=== PATIENT | female | born 1955 | race Caucasian/White ===

== ENCOUNTER 2017-04-02 11:56 | Inpatient (IN) | payer BC ==
[2017-04-02] MEDS ORDERED: IPRATROPIUM-ALBUTEROL 3 ML NEB INHALATION PRN (12:45)
[2017-04-02] MEDS ORDERED: HYDROcodone/APAP 5-325MG 1 EACH TAB PO PRN (13:46)
[2017-04-02] MEDS ORDERED: LIDOCAINE 4% CREAM 5 GM TUBE TOPICAL PRN (13:47)
[2017-04-02] MEDS ORDERED: EPINEPHrine (Auto Inject) 0.3 MG/0.3 ML SYRINGE IM PRN (13:47)
[2017-04-02] MEDS ORDERED: guaiFENesin-Coden 100-10MG/5ML 10 ML CUP PO PRN (13:47)
[2017-04-02] MEDS ORDERED: LIDOCAINE 5% PATCH TOPICAL PRN ×2 (13:47→18:56)
[2017-04-02] MEDS: LEVOFLOXACIN 750MG-D5W PMX 750 MG in DEXTROSE/WATER 1 150ML.BAG IVPB SCH (14:06)
[2017-04-02] MEDS: methylPREDNISolone SOD SUCCI 125 MG/2 ML VIAL IV SCH ×2 (14:07→20:26)
[2017-04-02] MEDS: AZITHROMYCIN 500 MG TAB PO SCH (14:07)
[2017-04-02 14:41] LABS: Basophils # (A) 0.1 k/uL (0-0.2); Basophils % (A) 1 %; CH 29.7; CHCM 32.2; Eosinophils # (A) 0.1 k/uL (0-0.7); Eosinophils % (A) 1 %; HCT 45.3 % (34.0-46.0); HDW 2.43; HGB 14.5 gm/dL (11.4-16.0); Luc % (Auto) 2; Lymphocytes % (A) 23 %; MCH 29.6 pg (25.0-35.0); MCHC 31.9 g/dL (31.0-37.0); MCV 92.8 fL (80.0-100.0); Monocytes # (A) 0.5 k/uL (0-1.0); Monocytes % (A) 6 %; Neutrophils # (A) 5.9 k/uL (1.3-7.7); Neutrophils % (A) 68 %; RBC 4.88 m/uL (3.80-5.40); RDW 12.6 % (11.5-15.5); WBC 8.8 k/uL (3.8-10.6); WBC (Perox) 8.74
[2017-04-02 14:55] LABS: ALT 29 U/L (9-52); AST 18 U/L (14-36); Alkaline Phosphatase 67 U/L (38-126); Anion Gap 14 mmol/L; Blood Urea Nitrogen 14 mg/dL (7-17); Calcium 10.2 mg/dL (8.4-10.2); Carbon Dioxide 24 mmol/L (22-30); Chloride 104 mmol/L (98-107); Glucose 83 mg/dL (74-99); Non-African American GFR(MDRD) >60 (>60 ml/min/1.73 sqM); Sodium 142 mmol/L (137-145); Total Bilirubin 0.5 mg/dL (0.2-1.3); Total Protein 7.2 g/dL (6.3-8.2)
[2017-04-02] MEDS: IPRATROPIUM-ALBUTEROL 3 ML NEB INHALATION SCH ×2 (15:41→20:15)
[2017-04-02] MEDS: guaiFENesin SYRUP 100MG/5ML 200 MG/10 ML CUP PO PRN ×2 (17:27→23:42)
[2017-04-02] MEDS ORDERED: MELOXICAM 7.5 MG TAB PO PRN (18:57)
[2017-04-02] MEDS: guaiFENesin-DM 600/30MG 1 EACH TAB.ER.12H PO SCH (19:59)
[2017-04-02] MEDS: AMITRIPTYLINE HCL 25 MG TAB PO SCH (20:01)
[2017-04-02] MEDS: SYMBICORT 160-4.5 MCG INHALER INHALATION SCH (20:15)
[2017-04-02] MEDS ORDERED: ZOLPIDEM 5 MG TAB PO PRN (21:00)
[2017-04-02] MEDS ORDERED: ATORVASTATIN 20 MG TAB PO SCH (21:00)
[2017-04-02] MEDS ORDERED: DOXYCYCLINE HYCLATE 100 MG PO SCH (21:00)
[2017-04-02] MEDS ORDERED: LUBIPROSTONE 8 MCG PO SCH (21:00)
[2017-04-02] MEDS ORDERED: MONTELUKAST 10 MG TAB PO SCH (21:00)
[2017-04-02] MEDS: HYDROcodone/APAP 10-325MG 1 EACH TAB PO PRN (21:34)
[2017-04-03] MEDS: methylPREDNISolone SOD SUCCI 125 MG/2 ML VIAL IV SCH ×4 (00:29→16:43)
[2017-04-03] MEDS: HYDROcodone/APAP 10-325MG 1 EACH TAB PO PRN ×2 (07:19→16:56)
[2017-04-03] MEDS ORDERED: PANTOPRAZOLE 40 MG TABLET PO SCH (07:30)
[2017-04-03] MEDS: IPRATROPIUM-ALBUTEROL 3 ML NEB INHALATION SCH ×3 (07:59→15:49)
[2017-04-03] MEDS: SYMBICORT 160-4.5 MCG INHALER INHALATION SCH ×2 (07:59→08:24)
--- NOTE | 2017-04-03 08:22 | HP ---
DATE OF ADMISSION: 04/02/2017 PRESENTING COMPLAINT: Short of breath, cough. HISTORY OF PRESENTING COMPLAINT: This is a 61-year-old patient of Dr. Monzon. Patient has got a long-standing history of asthma. The patient presented from the office seen by Dr. Barlow, with worsening shortness of breath, cough, not able to expectorate, fever, short of breath, wheezing. Patient did plan to do a bronchoscopy. ( ), set up, weak and tired. The patient's chronic stable medical conditions include urinary incontinence, increased cholesterol, GERD, patient has chronic low back pain and arthritic pain in the joints. REVIEW OF SYSTEMS: CONSTITUTIONAL: Tired. HEENT: As above. RESPIRATORY: As above. CARDIOVASCULAR: None. GASTROINTESTINAL: Heartburn. GENITOURINARY: Urinary incontinence. Dermatological: None. HEMATOLOGICAL: None. LYMPHATICS: None. PSYCHIATRY: None. NEUROLOGICAL: None. PAST MEDICAL HISTORY: Chronic urinary incontinence, hypercholesterolemia, GERD, ( ) asthma, lower back pain with neuropathy and arthritis in many joints. PAST SURGICAL HISTORY: Cholecystectomy, hysterectomy, bronchoscopy, recent ( ) surgery. SOCIAL HISTORY: . Does not smoke or drink alcohol. FAMILY HISTORY: Coronary artery disease and hyperlipidemia. Home medications: 1. Zoloft 1 mg a day. 2. Mobic 50 mg p.o. daily p.r.n. 3. [place] 10 1 tablets q.6 p.r.n. 4. Tramadol 0.25 every 7 days. 5. Lidoderm 5% patch daily p.r.n. 6. Xylocaine ointment topical daily p.r.n. 7. Vitamin D3 1000 units p.o. daily. 8. Probiotic 1 capsule p.o. daily. 9. EpiPen 0.3 IM once p.r.n. 10. Lipitor 20 mg p.o. q.h.s. 11. Dulera 2 puffs b.i.d. 12. Myrbetriq 25 mg p.o. daily. 13. Amitiza 8 mcg p.o. b.i.d. 14. Elavil 75 mg p.o. b.i.d. ALLERGIES TO IV CONTRAST DYE, PENICILLIN, SULFA. On examination, temperature 98.7, pulse 100, respiration 20, blood pressure 120/73, pulse ox 93% on room air. GENERAL APPEARANCE: Average build, sitting up, bouts of coughing. EYES: Pupils equal. Conjunctivae normal. HEENT: External appearance of nose and ears normal. Oral cavity normal. NECK: JVD not raised. Mass not palpable. RESPIRATORY: Effort increased. LUNGS: Decreased breath sounds and wheezing. Expiratory wheeze, coarse crackles. CARDIOVASCULAR: First and second sounds normal. No edema. ABDOMEN: Soft, nontender. Liver and spleen not palpable. LYMPHATIC: No lymph nodes palpable in neck or axillae. PSYCHIATRY: Alert and oriented x3. Mood and affect normal. NEUROLOGICAL: Pupils equal. Cranial nerves grossly intact. Power and sensation grossly intact. INVESTIGATIONS: White count 8.8, hemoglobin 8.5, potassium 4.0, BUN and creatinine normal. ASSESSMENT: 1. Left lower lobe pneumonia community-acquired, suspect gram-negative organism. 2. Persistent ( ) asthma with acute exacerbation from above. 3. Chronic urinary stress incontinence. 4. Hypercholesterolemia. 5. Gastroesophageal reflux disease. 6. Chronic low back pain with neuropathy. 7. Primary osteoarthritis multiple joints bilateral joints. PLAN: Patient was put on nebulized bronchodilators, antibiotics in form of Levaquin and IV Solu-Medrol. Home medications resumed. Care was discussed with the patient. Patient will be getting bronchoscopy tomorrow.
[2017-04-03] MEDS ORDERED: SERTRALINE 100 MG TAB PO SCH (09:00)
[2017-04-03] MEDS ORDERED: LACTOBACILLUS ACIDOPH & BULGAR 1 EACH PACKET PO SCH (09:00)
[2017-04-03] MEDS ORDERED: AMITRIPTYLINE HCL 25 MG TAB PO SCH (09:00)
[2017-04-03] MEDS ORDERED: ENOXAPARIN 40 MG/0.4 ML SYRINGE SQ SCH (09:00)
[2017-04-03] MEDS ORDERED: NON-FORMULARY DRUG (Mirabegron [Myrbetriq] 25 MG) PO SCH (09:00)
[2017-04-03] MEDS ORDERED: OXYBUTYNIN XL 5 MG TAB.ER.24 PO SCH (09:00)
[2017-04-03] MEDS ORDERED: CHOLECALCIFEROL 1,000 UNIT TAB PO SCH (12:00)
[2017-04-03] MEDS ORDERED: ERGOCALCIFEROL 50,000 UNIT CAP PO SCH (12:00)
[2017-04-03] MEDS ORDERED: PROPOFOL 10 MG/ML 20 ML VIAL IV ONE (12:44)
[2017-04-03] MEDS ORDERED: LACTATED RINGERS 1,000 ML IV ONE (12:45)
[2017-04-03] MEDS ORDERED: LIDOCAINE 2% (PF) 20 MG/ML 10ML INHALATION ONE (12:45)
--- NOTE | 2017-04-03 12:50 | P.CNPUL ---
History of Present Illness Consult date: 04/03/17 Reason for consult: dyspnea, cough History of present illness: 61-year-old female patient who is known to me. The patient's was sent over from our office yesterday because of increased difficulty in breathing. The patient increased cough and congestion and wheezing it's been going on for more than 3 weeks. Apparently the patient was initially treated by the [facility] locally and she was given a course of Cefnadir and a prednisone burst taper and she was given promethazine with codeine for cough. Unfortunately her condition did not improve. Yesterday she was seen by Dr. Ndiaye and the patient was diagnosed having a left lower lobe pneumonia and for that reason the patient was hospitalized and a bronchoscopy was also indicated knowing that the patient had a similar presentation approximately 8 months ago and she had significant difficulties and cough and altered the rest or secretions and she required a bronchoscopy for therapeutic airway suctioning and lavage. Note that the penis bronchoscopy was negative. I have diagnosed this patient with bronchial asthma. I treated her back in August 2016 for a similar presentation. Following her discharge was placed on Dulera as maintenance. Apparently she has been compliant to her treatment. She has no pets at home. She does not have any exposure to cigarette smoke. No nasal polyposis. No aspirin sensitivities. No skin rashes. She did recover well from her original asthma exacerbation occurred in August 2016. Note that during her earlier bronchoscopy the patient showed purulent respiratory secretions from the left lower lobe and the lingula. She has depression. She has hyperlipidemia as comorbid conditions. She has skeletal chest wall pain due to ongoing cough. No pleurisy. No hemoptysis. No fever or chills. Currently she is on a combination of Rocephin and Zithromax. No involvement of ALLERGIES. Review of Systems All systems: negative Constitutional: Denies chills, Denies fever Eyes: denies blurred vision, denies pain Ears, nose, mouth and throat: Denies headache, Denies sore throat Cardiovascular: Denies chest pain, Denies shortness of breath Respiratory: Reports cough, Reports cough with sputum, Reports dyspnea, Reports wheezing Gastrointestinal: Denies abdominal pain, Denies diarrhea, Denies nausea, Denies vomiting Genitourinary: Denies dysuria, Denies hematuria Musculoskeletal: Denies myalgias Integumentary: Denies pruritus, Denies rash Neurological: Denies numbness, Denies weakness Psychiatric: Denies anxiety, Denies depression Endocrine: Denies fatigue, Denies weight change Past Medical History Past Medical History: Asthma, GERD/Reflux, Hyperlipidemia, Pneumonia Additional Past Medical History / Comment(s): chronic low back pain, chronic bronchial asthma, hyperlipidemia, depression, osteoarthritis, overactive bladder History of Any Multi-Drug Resistant Organisms: None Reported Past Surgical History: Cholecystectomy, Hysterectomy, Orthopedic Surgery Additional Past Surgical History / Comment(s): 09/07/16 bronchoscopy with BAL, colonoscopy, recent L knee arthroscopic surgery. Past Anesthesia/Blood Transfusion Reactions: Postoperative Nausea & Vomiting ( PONV) Additional Past Anesthesia/Blood Transfusion Reaction / Comment(s): pt stated she has not had a blood tranfusion. Past Psychological History: No Psychological Hx Reported Additional Psychological History / Comment(s): Pt resides with her spouse. She uses a cane at times if her balance is off. She drives. Smoking Status: Never smoker Past Alcohol Use History: None Reported Past Drug Use History: None Reported - Past Family History Father Family Medical History: Coronary Artery Disease (CAD), Hyperlipidemia Additional Family Medical History / Comment(s): Father is . Mother Family Medical History: Rheumatoid Arthritis (RA) Additional Family Medical History / Comment(s): Mother is 90yrs old. Medications and Allergies Home Medications Medication Instructions Recorded Confirmed Type Atorvastatin [Lipitor] 20 mg PO HS 09/04/16 04/02/17 History EPINEPHrine [Epipen 2-Casey] 0.3 mg IM ONCE PRN 09/04/16 04/02/17 History Lidocaine 5% Oint [Xylocaine 5% 1 applic TOPICAL DAILY PRN 09/04/16 04/02/17 History Oint] Lidocaine [Lidoderm 5% Patch] 2 patch TRANSDERM DAILY PRN 09/04/16 04/02/17 History Lubiprostone [Amitiza] 8 mcg PO BID 09/04/16 04/02/17 History Mirabegron [Myrbetriq] 25 mg PO DAILY 09/04/16 04/02/17 History Mometasone/Formoterol [Dulera 200 2 puff INHALATION RT-BID 09/04/16 04/02/17 History Mcg/5 Mcg Inhaler] Cholecalciferol [Vitamin D3] 1,000 unit PO DAILY 04/02/17 04/02/17 History Estradiol [Climara 0.025 MG] 1 patch TRANSDERM Q7DAYS 04/02/17 04/02/17 History HYDROcodone/APAP 10-325MG [[place] 1 tab PO Q6H PRN 04/02/17 04/02/17 History 10-325] L.acidoph,Paracasei, B.lactis 1 cap PO DAILY 04/02/17 04/02/17 History [Probiotic] Meloxicam [Mobic] 15 mg PO DAILY PRN 04/02/17 04/02/17 History Sertraline [Zoloft] 200 mg PO DAILY 04/02/17 04/02/17 History Allergies Allergy/AdvReac Type Severity Reaction Status Date / Time Iodinated Contrast Media - Allergy Anaphylaxis Verified 04/02/17 14:18 Oral and [Iodinated Contrast Media - IV Dye] Penicillins Allergy Swelling Verified 04/02/17 14:18 Sulfa (Sulfonamide Allergy Unknown Verified 04/02/17 14:18 Antibiotics) Childhood Physical Exam Vitals: Vital Signs Temp Pulse Pulse Resp BP Pulse Ox 04/03/17 08:01 86 04/03/17 08:00 103 H 16 04/03/17 07:00 97.4 F L 103 H 16 136/61 97 04/03/17 00:00 18 04/02/17 23:24 97.7 F 104 H 18 142/64 93 L 04/02/17 20:25 88 04/02/17 20:16 80 04/02/17 16:00 18 04/02/17 15:51 84 04/02/17 15:41 84 04/02/17 15:00 98.7 F 100 20 121/73 93 L Intake and Output 04/02/17 04/03/17 04/03/17 22:59 06:59 14:59 Other: Voiding Method Toilet # Voids 1 1 1 Weight 68.8 kg 68.8 kg Patient Weight 04/04/17 06:59 Weight 68.8 kg The patient appeared well nourished and normally developed. Vital signs as documented. Head exam is unremarkable. No scleral icterus or corneal arcus noted. Neck is without jugular venous distension, thyromegaly, or carotid bruits. Carotid upstrokes are brisk bilaterally. Lungs are diminished breath sound bilaterally along with diffuse expiratory wheezes throughout the lung sandoval and scattered rhonchi.. Cardiac exam reveals the PMI to be normally sized and situated. Rhythm is regular. First and second heart sounds normal. No murmurs, rubs or gallops. Abdominal exam reveals normal bowel sounds, no masses , no organomegaly and no aortic enlargement. Extremities are nonedematous and both femoral and pedal pulses are normal. Results - Laboratory Findings CBC and BMP: 04/02/17 13:46 04/02/17 13:46 - Diagnostic Findings Chest x-ray: image reviewed Assessment and Plan Plan: Assessment 1 left lower lobe pneumonia, was treated with Cefdanir and a prednisone burst taper on an outpatient basis. The patient is persistent infiltration of the left lung base. 2 chronic bronchial asthma 3 asthma exacerbation secondary to left lower lobe pneumonia 4 increased dyspnea cough and wheeze secondary to above 5 hyperlipidemia 6 depression 7 chronic back pain Plan Continue Levaquin and discontinue the Zithromax. Check a Legionella urine antigen. Continue bronchodilators and the patient is sitting DuoNeb neb last treatment [id number]. Continue systemic steroids. We'll proceed with bronchoscopy and therapeutic it was suctioning bronchial lavage. Further recommendations are to follow. Consider discharge following the bronchoscopy that was treated on outpatient basis with oral antibiotics and a prednisone burst taper. I'll make it final decision once the patient completes her bronchoscope. Case was discussed with the hospitalist.
--- NOTE | 2017-04-03 13:06 | P.PCN ---
Date of Procedure: 04/03/17 Preoperative Diagnosis: Left lower lobe pneumonia Postoperative Diagnosis: 1 left lower lobe pneumonia 2 tracheal bronchomalacia Procedure(s) Performed: Bronchoscopy, bronchioloalveolar lavage of the left lower lobe Implants: Anesthesia: MAC Surgeon: Virginia Monzon Estimated Blood Loss (ml): 0 Pathology: other Condition: stable Disposition: same day Indications for Procedure: LLL pneumonia , persistent Operative Findings: This procedure was done under conscious sedation with anesthetic agents being administered by anesthesia the bedside. The patient was induced by Diprivan. After achieving adequate sedation, the flexible bronchoscope was inserted to the right nostril was advanced upper airway. Examination of the posterior oropharynx, larynx, epiglottis, vallecula, arytenoids and 12. Records were all within normal limits. A total of 2 mL of 1% lidocaine was applied to the vocal cords and following that the bronchoscope was advanced into the upper the trachea. Examination of the tracheal bronchial tree was done. There was a [id number] uptake of bronchomalacia with evidence of dynamic obstruction with axillary maneuvers and coughing. The membranous trachea was quite mobile and dynamic and moving anteriorly causing some degree of airway obstruction with cough and. There was significant amount of purulent respiratory secretions. Within the patient's trachea and at the bronchoscope was advanced, it was obvious that the purulent secretions were emanating and/or originating from the left lower lobe. At this point that particular was suctioning was done and the rest or secretions were suctioned out without any major difficulties. The airway inspection was completed. The trachea was widely apron them within normal limits with evidence of trachea malacia. The right mainstem bronchus, right upper lobe bronchus, bronchus intermedius, right middle lobe bronchus and right lower lobe bronchus were widely patent within normal limits. Left mainstem bronchus was full of purulent material that were suctioned out. Similarly, purulent material wasn't defined in the left lower lobe and I think this was the origin of the pneumonia and rest or secretions. It was suctioning was done. Bronchial lavage of the left lower lobe was downward total of 60 and mother fluid was infused and 20 MO's of purulent material was suctioned back. The airway inspection on the left side showed inflamed and thickened and erythematous left lower lobe bronchus. Left upper lobe bronchus was also similarly affected although to a lesser extent. The airways were patent. No endobronchial tumors or lesions. Addendum of the procedure therapeutic it was suctioning was done and the bronchus was removed and the sample will be sent for cultures. No bedside Complications or bleeding. Description of Procedure:
--- NOTE | 2017-04-03 13:59 | XR ---
EXAMINATION TYPE: XR chest 2V DATE OF EXAM: 04/03/2017 HISTORY: chest for pneumonia. REFERENCE: Previous study dated 04/02/2017. FINDINGS: There is a right middle lobe infiltrate. This has improved slightly from yesterday study. T he right lung is clear. I cannot exclude a small left effusion. Heart size upper limits of normal. IMPRESSION: SLIGHTLY IMPROVED AERATION, LEFT LUNG BASE.
[2017-04-03] MEDS: guaiFENesin-DM 600/30MG 1 EACH TAB.ER.12H PO SCH (15:28)
[2017-04-03] MEDS: AZITHROMYCIN 500 MG TAB PO SCH (15:29)
[2017-04-03 15:45] VITALS: BP 124/59; PULSE 88; RESP 18; TEMP 97.5
[2017-04-03] MEDS: AMITRIPTYLINE HCL 25 MG TAB PO SCH (16:28)
[2017-04-03] MEDS: LEVOFLOXACIN 750MG-D5W PMX 750 MG in DEXTROSE/WATER 1 150ML.BAG IVPB SCH (16:29)
[2017-04-03] MEDS ORDERED: LEVOFLOXACIN 750 MG TAB PO SCH (17:00)
[2017-04-03 17:41] LABS: RBC, Body Fluid 55000 /uL
--- NOTE | 2017-04-04 17:04 | DS ---
DATE OF ADMISSION: 04/02/2017 DATE OF DISCHARGE: 04/03/2017 FINAL DIAGNOSES: 1. Left lobe pneumonia community-acquired, suspect gram-negative organism. 2. Persistent moderate asthma with acute exacerbation, present on admission. 3. Chronic urinary stress incontinence. 4. Hypercholesterolemia. 5. Gastroesophageal reflux disease. 6. Chronic low back pain from neuropathy. 7. Primary osteoarthrosis of multiple joints, bilateral. CONSULTATION: Dr. Monzon from pulmonary. HOSPITAL COURSE: This patient presented with asthma exacerbation, pneumonia. X-ray was done in Dr. Barlow's office. Patient did undergo bronchoscopy with Dr. Monzon that showed significant amount of pneumonia. Patient doing much better after that. On examination, LUNGS: Decreased breath sounds. Mild wheezing. CARDIOVASCULAR: First and second sounds normal. Blood cultures were negative. Care was discussed with Dr. Monzon in detail, as the patient is keen to go home. Dr. Monzon said the patient can actually go home. DISCHARGE MEDICATIONS: 1. Lipitor 20 mg q.h.s. 2. EpiPen 0.3 mg p.r.n. 3. Lidocaine 5% ointment topical daily p.r.n. 4. Lidoderm 5% patch p.r.n. 5. Amitiza 8 mg p.o. b.i.d. 6. ( ) 25 mg p.o. daily. 7. Dulera 2 puffs b.i.d. 8. Elavil 75 mg p.o. b.i.d. 9. Vitamin D3 1000 units p.o. daily. 10. [place]ara 0.025 mg 1 patch q.7 days. 11. [place] 10, 1 tablet every 6 hours p.r.n. 12. Probiotic 1 capsule p.o. daily. 13. Mobic 15 mg p.o. daily p.r.n. 14. Zoloft 200 mg p.o. daily. 15. Levaquin 750 mg p.o. daily for 7 days. 16. Singulair 10 mg p.o. q.h.s. 17. Prednisone taper. Discharge planning to 35 minutes. Follow up with Dr. Monzon in 1 week.
[2017-04-05 16:11] LABS: Mis test requested (Non-blood) LEGIONELLA PCR BRW
== END 2017-04-03 18:45 | disposition home or self-care (01) | DRG 167 ==
LOC: 5MS5E 12:17
PROVIDERS: ADMIT Hospitalist; ATTEND Hospitalist
PROC: 0B9J8ZX Drainage of Left Lower Lung Lobe, Via Natural or Artificial Opening Endoscopic, Diagnostic (ICD-10-PCS; principal; 2017-04-03 12:40)
DX: J15.6 Pneumonia due to other Gram-negative bacteria (principal); J45.41 Moderate persistent asthma with (acute) exacerbation; G62.9 Polyneuropathy, unspecified; J98.09 Other diseases of bronchus, not elsewhere classified; K21.9 Gastro-esophageal reflux disease without esophagitis; F32.9 Major depressive disorder, single episode, unspecified; G89.29 Other chronic pain; M54.5 Low back pain; N39.3 Stress incontinence (female) (male); E78.00 Pure hypercholesterolemia, unspecified; M19.91 Primary osteoarthritis, unspecified site; E78.5 Hyperlipidemia, unspecified; N32.81 Overactive bladder; Z90.49 Acquired absence of other specified parts of digestive tract; Z90.710 Acquired absence of both cervix and uterus; Z88.0 Allergy status to penicillin; Z88.2 Allergy status to sulfonamides; Z91.041 Radiographic dye allergy status; Z79.899 Other long term (current) drug therapy
CPT/HCPCS: 31624; 71020; 80053; 85025; 87040; 87070; 87102; 87116; 87205; 87206; 87252; 87449; 87496; 87498; 87502; 87529; 87541; 87798; 89050; 94640

== ENCOUNTER → 2017-04-11 | Outpatient (CLI) | payer BC ==
--- NOTE | 2017-04-11 09:12 | CT ---
EXAMINATION TYPE: CT chest w con DATE OF EXAM: 04/11/2017 COMPARISON: Chest x-ray from yesterday. Older chest x-ray September 14, 2016. HISTORY: Left lower lobe pneumonia per order. Abnormal x-ray. CT DLP: 237.90 mGycm. Automated Exposure Control for Dose Reduction was Utilized. TECHNIQUE: CT scan of the thorax is performed following with IV Contrast, patient injected with 100 mL of Omnipaque 300. FINDINGS: LUNGS: Linear slight triangular shaped consolidation with air bronchograms is seen in the left lung b ase posteriorly extending from left lower lobe bronchus. No suspicious parenchymal nodule or mass is present bilaterally. There is linear scarring or atelectasis laterally in the right lung base. Right lung is otherwise clear. There is no pleural effusion or pneumothorax seen bilaterally. The tracheo bronchial tree is patent. MEDIASTINUM: There are no greater than 1 cm hilar or mediastinal lymph nodes. No pericardial effusi on is seen. OTHER: Cholecystectomy clips are noted. Mild atherosclerotic change in aorta is present. Mild multile yani anterior spurring in the spine is seen. IMPRESSION: Posterior left basilar triangular shaped consolidation could reflect acute infiltrate or pneumonia, scarring is favored given no significant change from August 2016 chest x-ray. Remainder bilateral lungs is clear of acute process.
== END | disposition home or self-care (01) ==
LOC: RADCTMAIN 07:37
PROVIDERS: ATTEND Internal Medicine Critical Care Medicine
DX: J18.1 Lobar pneumonia, unspecified organism (principal); Z88.0 Allergy status to penicillin; Z88.2 Allergy status to sulfonamides; Z88.6 Allergy status to analgesic agent
CPT/HCPCS: 71260; Q9967

== ENCOUNTER → 2020-05-12 | Outpatient (CLI) | payer BC ==
[2020-05-12 14:10] LABS: C Reactive Protein 6.8 mg/L (<10.0); Uric Acid 3.9 mg/dL (3.7-7.4)
[2020-05-12 14:29] LABS: T4, Free (Free Thyroxine) 0.96 ng/dL (0.78-2.19)
--- NOTE | 2020-05-13 10:40 | MM ---
Reason for exam: screening (asymptomatic). Last mammogram was performed 12 years and 9 months ago. History: Patient is postmenopausal. Family history of breast cancer in maternal cousin at age 64. Took hormonal contraceptives for 5 years. Taking estrogen for 15 years beginning at age 34. Physical Findings: A clinical breast exam by your physician is recommended on an annual basis and results should be correlated with mammographic findings. MG 3D Screening Mammo W/Cad Bilateral CC and MLO view(s) were taken. Prior study comparison: August 12, 2007, bilateral [place] screening mammogram, performed at [facility]. There is chronic nodularity bilaterally. No significant changes when compared with prior studies. ASSESSMENT: Benign, BI-RAD 2 RECOMMENDATION: Routine screening mammogram of both breasts in 1 year.
== END | disposition home or self-care (01) ==
LOC: RADMAMWWP 12:13
PROVIDERS: ATTEND Family Medicine
DX: Z12.31 Encounter for screening mammogram for malignant neoplasm of breast (principal); R94.6 Abnormal results of thyroid function studies; M25.50 Pain in unspecified joint
CPT/HCPCS: 36415; 77063; 77067; 84439; 84481; 84550; 86038; 86140; 86431; 86800

== ENCOUNTER → 2024-03-16 | Outpatient (CLI) | payer MEDICARE ==
--- NOTE | 2024-03-20 10:52 | MM ---
Reason for Exam: Screening (asymptomatic). Last mammogram was performed 3 year(s) and 10 month(s) ago. Patient History: Menarche at age 9. Patient has no children. Left ovary removed at age 34. Right ovary removed at age 34. Hysterectomy at age 34. Postmenopausal. Currently using Estrogen, beginning at age 34 for 15 years. Patient used Hormonal Contraceptives for 5 years. Maternal cousin had breast cancer, age 64. Risk Values: Gillian 5 year model risk: 2.1%. NCI Lifetime model risk: 6.1%. Prior Study Comparison: 07/08/2006 Bilateral Screening Mammogram, [place]. 08/12/2007 Bilateral Screening Mammogram, [place]. 05/12/2020 Bilateral Screening Mammogram, [facility]. Tissue Density: The breasts are heterogeneously dense, which may obscure small masses. Findings: Analyzed By CAD. Right breast: There is no suspicious group of microcalcifications or new suspicious mass. Left breast: There is no suspicious group of microcalcifications or new suspicious mass. Overall Assessment: Negative, BI-RAD 1 Management: Screening Mammogram of both breasts in [address] [facility] will attempt to contact patient to return for supplemental views and ultrasound if indicated. Patient should continue monthly self-breast exams. A clinical breast exam by your physician is recommended on an annual basis. This exam should not preclude additional follow-up of suspicious palpable abnormalities. Note on Gillian scores and lifetime risk: 1. A Gillian score greater than 3% is considered moderate risk. If this is the case, consider specialist referral to assess eligibility for a risk reducing agent. 2. If overall lifetime risk for the development of breast cancer is 20% or higher, the patient may qualify for future screening with alternating mammogram and breast MRI. Electronically signed and approved by: Driss Lomas DO
== END | disposition home or self-care (01) ==
LOC: RADMAMWWP 10:13
PROVIDERS: ATTEND Family Medicine
DX: Z12.31 Encounter for screening mammogram for malignant neoplasm of breast (principal); Z78.0 Asymptomatic menopausal state; Z80.3 Family history of malignant neoplasm of breast
CPT/HCPCS: 77063; 77067

== ENCOUNTER → 2024-03-16 | Outpatient (CLI) | payer MEDICARE ==
--- NOTE | 2024-03-18 05:13 | CT ---
EXAMINATION TYPE: CT sinus wo con DATE OF EXAM: 03/16/2024 COMPARISON: None. HISTORY: Chronic maxillary sinusitis deviated septum CT DLP: 453.10 mGycm. Automated Exposure Control for Dose Reduction was Utilized. TECHNIQUE: CT scan of the sinuses is performed without contrast, axial images are obtained, coronal r eformatted images are also reviewed. FINDINGS: The paranasal sinuses including the frontal, ethmoid, sphenoid, and maxillary sinuses bila terally are well-aerated without abnormal opacification or suspicious air-fluid levels. The ostiomea lucy complex is narrowed but patent bilaterally on the coronal images. Nasal septum is minimally devia brice to right of midline. Visualized portion of mastoid air cells show no abnormal opacification. The globes are intact bilate rally. IMPRESSION: The paranasal sinuses are clear.
== END | disposition home or self-care (01) ==
LOC: RADCTMAIN 09:50
PROVIDERS: ATTEND Otolaryngology
DX: J32.0 Chronic maxillary sinusitis (principal)
CPT/HCPCS: 70486